=== PATIENT | female | born 1950 | race Caucasian/White ===

== ENCOUNTER 2021-03-13 07:15 | Outpatient (RCR) | payer MEDICARE, SELFPAY ==
[2020-12-20 08:49] VITALS: BP 136/70; PULSE 62; RESP 16; O2SAT 97
[2020-12-20 09:20] VITALS: PULSE 62
== END 2021-03-13 18:30 | disposition home or self-care (01) ==
LOC: ANHCPREHAB 07:15
DX: Z95.5 Presence of coronary angioplasty implant and graft (principal); I25.2 Old myocardial infarction
CPT/HCPCS: 93798